=== PATIENT | male | born 1990 | race Caucasian/White ===

== ENCOUNTER 2018-09-28 09:27 | Emergency (ER) | payer MEDICAID ==
[~2018-09-28] VITALS: Ht 185.4 cm; Wt 99.8 kg
[2018-09-28 10:12] LABS: Urine WBC None Seen /hpf (0 - 3)
[2018-09-28 10:24] LABS: Urine Bacteria NONE SEEN /hpf (None Seen); Urine Blood Negative /uL (Negative); Urine Specific Gravity 1.017 (1.001-1.035)
[2018-09-28] MEDS ORDERED: SODIUM CHLORIDE 0.9% 1,000 ML IV ONE (10:35)
[2018-09-28 10:36] VITALS: BP 152/76
[2018-09-28] MEDS ORDERED: KETOROLAC TROMETH 30 MG/ML 1ML VIAL IV ONE (10:45)
[2018-09-28 11:05] LABS: Albumin 4.3 g/dL (3.4-5.0); BUN/Creatinine Ratio 13.9; Calcium 9.3 mg/dL (8.5-10.1)
[2018-09-28 11:07] LABS: Basophils # (auto) 0 uL; Basophils % (auto) 0.2 % (0.0-2.0); Bilirubin, Total 0.4 mg/dL (0.2-1.0); Eosinophils # (auto) 0.1 uL; Hemoglobin 15.3 g/dL (13.5-17.5); Lymphocytes # (auto) 1.6 uL; Lymphocytes % (auto) 26.2 % (10.0-50.0); Mean Corpuscular Hemoglobin 28.8 pg (28.0-32.0); Mean Corpuscular Volume 84.7 fL (80.0-100.0); Monocytes # (auto) 0.4 uL; Monocytes % (auto) 6.7 % (0.0-12.0); Neutrophils # (auto) 4.1 uL; Neutrophils % (auto) 64.9 % (37.0-80.0); Platelet Count (auto) 267 10^3/uL (140-450); Red Blood Cells 5.32 10^6/uL (4.5-5.90); Total Protein 7.9 g/dL (6.4-8.2); White Blood Cell 6.3 10^3/uL (4.4-10.8)
== END 2018-09-28 12:17 | disposition home or self-care (01) ==
LOC: ER 09:27
DX: S39.011A Strain of muscle, fascia and tendon of abdomen, initial encounter (principal); F17.290 Nicotine dependence, other tobacco product, uncomplicated; F12.10 Cannabis abuse, uncomplicated; X58.XXXA Exposure to other specified factors, initial encounter; Y93.89 Activity, other specified; Y99.8 Other external cause status; Y92.89 Other specified places as the place of occurrence of the external cause
CPT/HCPCS: 36415; 74176; 80053; 81001; 85025; 96361; 96374; 99284; J1885; J7030

== ENCOUNTER 2020-02-15 09:53 | Emergency (ER) | payer MEDICAID ==
[~2020-02-15] VITALS: Ht 185.4 cm; Wt 81.6 kg
[2020-02-15 11:00] VITALS: BP 114/57
== END 2020-02-15 12:03 | disposition home or self-care (01) ==
LOC: ER 09:53
DX: R11.2 Nausea with vomiting, unspecified (principal); R51 Headache; F17.210 Nicotine dependence, cigarettes, uncomplicated
CPT/HCPCS: 70360

== ENCOUNTER 2025-09-25 08:51 | Emergency (ER) | payer MEDICAID ==
[~2025-09-25] VITALS: Ht 185.4 cm; Wt 78.6 kg
[2025-09-25] MEDS: methylPREDNISolone SOD SUCC 125 MG/2 ML VL IM ONE (09:59)
[2025-09-25] MEDS: cefTRIAXone SOD 1,000 MG VL IM ONE (09:59)
[2025-09-25] MEDS ORDERED: IBUP-1455 PO (10:25)
[2025-09-25] MEDS ORDERED: PRED20TA2 PO (10:25)
[2025-09-25] MEDS ORDERED: AUG875T PO (10:25)
--- NOTE | 2025-09-25 10:27 | ED.PDOC ---
Eye-HPI HPI Comments Patient complaining of sore throat and pain on the left-sided throat x2 days. Poor reports pain with swallowing. No fever no chills. No difficulty breathing. Denies any cough. Nothing makes it better, eating makes it worse. Chief Complaint: Sore Throat Time Seen by MD: 09:10 Primary Care Provider: SHELLIE Caruso Notes: Nurses Notes Allergies: Coded Allergies: NO KNOWN ALLERGIES (Unverified , 09/28/18) Information Source: Patient Mode of Arrival: Ambulatory Past Medical History PAST MEDICAL HISTORY: Denies Surgical History: Denies all surgeries Family History Family History: Unknown Social History Smoker: Cigar Alcohol: Occasionally Drugs: Marijuana Lives In: Home Constitutional: denies: chills, diaphoresis, fatigue, fever, malaise, sweats, weakness, others EENTM: reports: throat pain, throat swelling; denies: blurred vision, double vision, ear bleeding, ear discharge, ear drainage, ear pain, ear ringing, eye pain, eye redness, hearing loss, mouth pain, mouth swelling, nasal discharge, nose bleeding, nose congestion, nose pain, photophobia, tearing, voice changes, others Respiratory: denies: cough, hemoptysis, orthopnea, SOB at rest, shortness of breath, SOB with excertion, stridor, wheezing, others Cardiovascular: denies: chest pain, dizzy spells, diaphoresis, Dyspnea on exertion, edema, irregular heart beat, left arm pain, lightheadedness, palpitations, PND, syncope, others Gastrointestinal: denies: abdomen distended, abdominal pain, blood streaked bowels, constipated, diarrhea, dysphagia, difficulty swallowing, hematemesis, melena, nausea, poor appetite, poor fluid intake, rectal bleeding, rectal pain, vomiting, others Genitourinary: denies: burning, dysuria, flank pain, frequency, hematuria, incontinence, penile discharge, penile sore, pain, testicle pain, testicle swelling, urgency, others Neurological: denies: dizziness, fainting, headache, left sided numbness, left sided weakness, numbness, paresthesia, pre-existing deficit, right sided numbness, right sided weakness, seizure, speech problems, tingling, tremors, weakness, others Musculoskeletal: denies: back pain, gout, joint pain, joint swelling, muscle pain, muscle stiffness, neck pain, others Physical Exam General Appearance: No Apparent Distress, Normal HEENT: Normal ENT Inspection, Other (Swelling to the left side tonsil, possible mild uvula deviation to the right, no airway obstruction) Neck: Full Range of Motion, Non-Tender, Normal, Normal Inspection Respiratory: Chest Non-Tender, Lungs Clear, No Accessory Muscle Use, No Respiratory Distress, Normal Breath Sounds Cardiovascular: No Edema, No JVD, No Murmur, No Gallop, Normal Peripheral Pulses, Regular Rate/Rhythm Breast Exam: Deferred Gastrointestinal: No Organomegaly, Non Tender, No Pulsatile Mass, Normal Bowel Sounds, Soft Genitalia: Deferred Pelvic: Deferred Rectal: Deferred Extremities: No calf tenderness, Normal capillary refill, Normal inspection, Normal range of motion, Non-tender, No pedal edema Musculoskeletal : Apperance: Normal Neurologic: Alert, laboratory mechanic helper II-XII nml as Tested, No Motor Deficits, Normal Affect, Normal Mood, No Sensory Deficits Cerebellar Function: Normal Reflexes: Normal Skin: Dry, Normal Color, Warm Lymphatic: No Adenopathy Was a procedure done? Was a procedure done?: No EENT DIFF Eye: N/A Sore Throat: Hand Foot Mouth Disease, David's Angina, Peritonsillar Abscess, Peritonsillar Cellulitis, Pharyngitis X-Ray, Labs, Meds, VS Vital Signs Date Time Temp Pulse Resp B/P (MAP) Pulse Ox O2 Delivery O2 Flow Rate FiO2 09/25/25 08:52 98.1 106 16 122/68 99 98.1 Current Medications Medications (Trade) Dose Ordered Sig/Roseanna Route Start Time Stop Time Status Last Admin Methylprednisolone Sodium Succinate (Solu Medrol) 125 mg ONCE ONCE IM 09/25/25 09:30 09/25/25 09:32 DC 09/25/25 09:59 Ceftriaxone Sodium (Rocephin) 1,000 mg ONCE ONCE IM 09/25/25 09:30 09/25/25 09:32 DC 09/25/25 09:59 X-Ray, Labs, Meds, VS Comment Imaging was reviewed by this provider, there is no obvious pathological or acute disease process. Pending radiology review Labs were reviewed by this provider, no abnormalities Vital signs reviewed by this provider, clinically stable Patient given strict 25 precautions. If symptoms worsen all in the next 24 hours he has turned into emergency department for further evaluation. Patient advised to finish antibiotics completely. Time of 1ST Reevaluation: 10:27 Reevaluation 1ST: Unchanged Patient Education/Counseling: Diagnosis, Treatment, Need For Follow Up (Follow up in 24 hours if symptoms worsen.) Family Education/Counseling: Diagnosis SEPSIS Sepsis Screen Date sepsis recognized/suspect: Sep 25, 2025 Time Sepsis recognized/suspect: 853 Recent Procedure: No On Antibiotic Therapy: No Respiratory Rate >20: No Heart Rate >90: Yes Temp<36 C (96.8 F) or >38.3 C: No SBP <90 or MAP <65 mmHG: No New Acute Mental Status Change: No Is the patient on CPAP, BIPAP,: No Vital Signs Date Time Temp Pulse Resp B/P (MAP) Pulse Ox O2 Delivery O2 Flow Rate FiO2 09/25/25 08:52 98.1 106 16 122/68 99 98.1 Medications Medications Dose Ordered Sig/Roseanna Route Start Time Stop Time Status Last Admin Dose Admin Ceftriaxone Sodium 1,000 mg ONCE ONCE IM 09/25/25 09:30 09/25/25 09:32 DC 09/25/25 09:59 Methylprednisolone Sodium Succinate 125 mg ONCE ONCE IM 09/25/25 09:30 09/25/25 09:32 DC 09/25/25 09:59 Departure 1 Departure Time of Disposition: 10:24 Impression: Primary Impression: Pharyngitis Qualified Codes: J02.0 - Streptococcal pharyngitis Disposition: 01 HOME / SELF CARE / HOMELESS Condition: Stable e-Prescriptions Ibuprofen Micronized (Ibuprofen) 800 Mg Tab 800 MG PO TID PRN, #30 TAB Prov: CARLOTA BURT 09/25/25 Prednisone (Prednisone) 20 Mg Tab 20 MG PO DAILY for 5 Days, #5 MG Prov: CARLOTA BURT 09/25/25 Amoxicillin & Pot Clavulanate (AUGMENTIN TABLET) 875 Mg Tb 875 MG PO BID for 7 Days, #14 TAB Prov: CARLOTA BURT 09/25/25 Discharged With: Self Critical Care Note Critical Care Time?: No Stability Stability form required: No Heart Score Heart Score: Heart Score Response (Comments) Value History N/A 0 EKG N/A 0 Age N/A 0 Risk Factors N/A 0 Troponin N/A 0 Total 0 CARLOTA BURT Sep 25, 2025 10:27
[2025-09-25 10:45] VITALS: BP 123/70; PULSE 108; RESP 18; TEMP 99.5; O2SAT 99
== END 2025-09-25 10:47 | disposition home or self-care (01) ==
LOC: ER 08:51
DX: J02.9 Acute pharyngitis, unspecified (principal); F17.290 Nicotine dependence, other tobacco product, uncomplicated
CPT/HCPCS: 96372; 99284; J0696; J2919